=== PATIENT | male | born 1985 | race Caucasian/White ===

== ENCOUNTER 2017-09-28 10:55 | Outpatient (RCR) | payer OTHER ==
[2017-09-28 11:14] LABS: PLATELET COUNT, AUTOMATED 226 K/uL (150-450)
== END 2017-09-28 18:00 | disposition home or self-care (01) ==
LOC: US 10:55
PROVIDERS: ATTEND Nurse Practitioner Family
DX: R10.9 Unspecified abdominal pain (principal)
CPT/HCPCS: 36415; 82040; 82150; 82247; 82310; 82374; 82435; 82565; 82947; 83690; 84075; 84132; 84155; 84295; 84450; 84460; 84520; 85025